=== PATIENT | male | born 1940 | race African-American/Black ===

== ENCOUNTER 2025-06-23 12:02 | Outpatient (REF) | payer MEDICARE, SELFPAY ==
[2025-06-23 14:49] LABS: Folate 9.0 ng/mL (> or = 4.0); Vitamin B12 675 pg/mL (200-900)
[2025-06-24 03:36] LABS: Syphilis Screen Nonreactive (Nonreactive)
== END 2025-06-23 12:03 | disposition home or self-care (01) ==
LOC: HO.LAB 12:02
PROVIDERS: PCP Internal Medicine; Visit Provider Psychiatry & Neurology Neurology
DX: G30.1 Alzheimer's disease with late onset (principal); F02.B4 Dementia in other diseases classified elsewhere, moderate, with anxiety; Z79.899 Other long term (current) drug therapy
CPT/HCPCS: 36415; 82607; 82746; 86780

== ENCOUNTER 2025-06-23 12:02 | Outpatient (AMB) | payer OTHER, SELFPAY ==
--- NOTE | 2025-06-23 12:06 | A.OFFVIS_ITS ---
Intake Visit Reasons: Double Vision Allergies No Known Allergies Allergy (Verified 06/17/25 09:42) Medication List - Last Reconciled 06/23/25 by Ashish Rock MD aspirin 81 mg PO DAILY diclofenac sodium 1% 2 grams topical QID valsartan 40 mg PO DAILY HPI Comments Details: The patient is an 85-year-old male presenting with concerns regarding cognitive impairment and a history of falls. A significant incident occurred in November when the patient fell in the basement while washing clothes, leading to persistent discomfort due to injuries. However, the falls and potential injuries were overshadowed by family bereavements, delaying their report. Cognitive issues were noticed post-fall as the patient began repeating stories and experiencing forgetfulness, raising concerns about cognitive decline. In January or February, he sought emergency care related to mobility complications aggravated by diabetes-related toe amputation and cognitive symptoms. The patient maintains a stable mood amid recent personal losses and displays a regular sleep pattern. His living condition involves navigating stairs to reach the laundry, posing additional fall risks. [facility] Medical History (Updated 06/23/25 @ 12:38 by Ashish Rock MD) Pain in joint, lower leg Erectile dysfunction Microalbuminuria Benign neoplasm of colon Cervicalgia Spinal stenosis of lumbar region CKD (chronic kidney disease) Nuclear sclerosis Amputation of great toe Hypertension Diabetes mellitus Surgical History (Updated 06/17/25 @ 09:39 by Libia Duong [facility]) Status post amputation of great toe Family History (Updated 06/17/25 @ 09:40 by Libia Duong CMA) Mother Breast cancer Diabetes mellitus Hypertension Father Lung cancer Review of Systems Const Details: - Neurologic: Reports episodes of forgetfulness and repetitive storytelling. - Psychiatric: Reports stable mood despite recent family bereavements. - Musculoskeletal: Reports discomfort post-fall, uses a cane for mobility. - Genitourinary: Denies any urinary incontinence issues. - Endocrine: Reports being diabetic, with implications on mobility post- amputation. Physical Exam Neuro Other: Mental Status: - Neurologic- Mini-Mental State Examination score of 21. - Appearance: Neatly dressed, relates well, maintains good focus. - Sensorium & orientation: Correctly identifies date, place, and personal details. - Intellect / cognition: Difficulty with serial sevens, spelling of simple words backwards, partial recall of prompted words. Cranial Nerves: CN II: Visual fried full to confrontation, visual acuity intact. CN III, IV, : Pupils equal, round, reactive to light and accommodation. Extraocular movements are normal. CN V: Facial sensation is normal. CN VII: Facial movements symmetrical. CN VIII: Hearing intact to bedside conversation is normal. CN IX, X: Palate elevates symmetrically. CN XI: Shoulder shrug and head turn symmetrical. CN XII: Tongue midline without atrophy or fasciculations. Extrapyramidal: Full facial expressions and blinking. No rigidity. Movements are appropriate with no tremor or abnormality. Speech: Normal; no dysarthria or tremor. Assessment & Plan Assessment & Plan (1) Alzheimer dementia: Code(s): G30.9 - Alzheimer's disease, unspecified; F02.80 - Dementia in other diseases classified elsewhere, unspecified severity, without behavioral disturbance, psychotic disturbance, mood disturbance, and anxiety Category: Medical Qualifiers: Alzheimer's disease onset: late onset Dementia severity: moderate Dementia behavioral or psychological symptom: with anxiety Qualified Code(s): G30.1 - Alzheimer's disease with late onset; F02.B4 - Dementia in other diseases classified elsewhere, moderate, with anxiety Plan Impression: Moderately severe probably Alzheimer or multifactorial (Alzheimer +vascular) dementia. It has affected his cognition balance and walking. Recommendations: 1. His daughter was asked to bring CTA of his brain scan done at [facility] at next visit 2. Avoid using stairs and take common sense precautions to avoid falls. He was already using a cane for safety. 3. No driving or making significant financial decisions as he could easily make a mistake. 4. Start sertraline 25 mg a day mostly for anxiety or behavioral symptoms. I would probably add more after reviewing his brain scan 5. Serum B12 level and RPR Orders: Orders Vitamin B12 and Folate Today F02.B4 - Dementia in other diseases classified elsewhere, moderate, with anxiety, G30.1 - Alzheimer's disease with late onset Syphilis Screen Today F02.B4 - Dementia in other diseases classified elsewhere, moderate, with anxiety, G30.1 - Alzheimer's disease with late onset Medications: New sertraline 25 mg PO DAILY 90 tabs 1RF Coding Level of Care Code Tele New Pt Level 5 (47647) Diagnoses Moderate late onset Alzheimer's dementia with anxiety G30.1; F02.B4 Alzheimer's disease onset: late onset Dementia severity: moderate Dementia behavioral or psychological symptom: with anxiety
--- OUTSIDE RECORDS SUMMARY | 2025-06-23 12:58 | XMS_ITS | Clinical Summary ---
Author Organization [facility] [address] [place] [address] [place] [phone] Phone Care Team Providers Care Six Pack Loader Operator Name Role Phone Andrea Haro MD Primary Care Provider [phone] Allergies No known active allergies Medications insulin syringe-needle U-100 1 mL 30 gauge x 1/2 syringe Use to inject insulin twice daily 3 Active flash glucose scanning reader (FreeStyle Kia 2 Peterman) misc 1 Device by Does not apply route continuous. 2 Active flash glucose sensor (FREESTYLE KIA 2 SENSOR MISC) USE 1 SENSOR EVERY 14 DAYS 3 Active lactulose (CHRONULAC) solution Take 30 mL by mouth daily as needed for Constipation. 3 Active brimonidine (ALPHAGAN) 0.2 % ophthalmic solution INSTILL 1 DROP INTO EACH EYE TWICE DAILY DIRECTED 2 Active blood sugar diagnostic (FREESTYLE TEST MISC) Test blood sugar 3 times per day 0 Active blood sugar diagnostic (FreeStyle Lite Strips) test strip USE 1 STRIP TO CHECK BLOOD SUGARS TWICE DAILY. 0 Active dorzolamide-arcadio oloL (COSOPT) 22.3-6.8 mg/mL ophthalmic solution Place 1 Drop into both eyes every morning. 5 Active FREESTYLE LANCETS MISC 1 Device by Does not apply route 2 times daily. 5 Active aspirin 81 mg EC tablet 1 TABLET DAILY 8 Active diclofenac (VOLTAREN) 1 % topical gel Apply 2 g topically 4 (four) times a day. 60 g 1 4 Active valsartan (DIOVAN) 40 mg tablet TAKE 1 TABLET BY MOUTH EVERY DAY 90 tablet 1 5 Active insulin NPH human isophane (NovoLIN N NPH U-100 Insulin) 100 unit/mL injection INJECT 8 UNITS IN THE MORNING AND 6 UNITS AT BEDTIME. 5 Active Active Problems Problem Noted Date Diagnosed Date Amputation of great toe, lef t, traumatic, subsequent encounter ([facility] V24) 05/02/2019 Overview (09/05/2024): 04/20/2019, osteomyelitis Streptococcal bacteremia 05/02/2019 Overview (09/05/2024): Strep viridans bacteremia related to osteomyelitis left great toe, 04/20/2019 Slow transit constipation 06/15/2017 Nuclear sclerosis 12/14/2016 Overview (09/05/2024): Bilateral POAG (primary open-angle glaucoma) 12/14/2016 Overview (09/05/2024): Dr. 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 ([facility] V24, [facility] V28) 12/14/2016 CKD (chronic kidney disease) stage 3, GFR 30-59 ml/min ([facility] V24, [facility] V28) 12/26/2012 Microalbuminuria 12/26/2012 Spinal stenosis of lumbar region 02/29/2012 Overview (09/05/2024): Severe DDD Cervicalgia 05/03/2011 Degenerative arthritis of cervical spine 011 Erectile dysfunction 06/02/2009 Allergic rhinitis 04/16/2008 Benign neoplasm of colon 02/11/2007 Overview (09/05/2024): Tubular adenoma 05/07 and 01/02 Hypertension 10/23/2005 Pain in joint, lower leg 10/23/2005 Type 2 diabetes mellitus ([facility] V24, [facility] V 28) 10/23/2005 Encounters Date Type Department Care Team Description 05/14/2025 1:30 PM EDT Consult Orthopedic Surgery - [place] [address] [place] [address] Abiola Borrego PA Chronic left shoulder pain (Primary Dx); Chronic right shoulder pain; Rotator cuff arthropathy, right 04/03/2025 10:23 AM EDT - 04/03/2025 11:59 PM EDT Hospital Encounter Radiology Department - [address] [phone] Double vision Discharge Disposition: Home or Self Care 03/27/2025 10:40 AM EDT Office Visit Endocrinology - [address] [phone] Monika Knowles PA Type 2 diabetes mellitus with other ophthalmic complication, with long-term current use of insulin ([facility] V[facility], [facility] V28) (Primary Dx); Stage 3a chronic kidney disease ([facility] V24, [facility] V28); Primary hypertension; Microalbuminuria 03/26/2025 Telephone Adult Medicine South - [address] [phone] Andrea Haro MD Results from Last 3 Months Immunizations Name Administration Dates Next Due Influenza trivalent, 0.5mL ( Fluzone High-dose) 65yo and older 10/11/2024,10/12/2023,10/04/2022,10/12,07/30/2020,06/26/2020,08/26/2017 Influenza trivalent, with pr eservative (Fluzone; Afluria) 6mo and older 09/21/2016,09/09/2015,08/21/2012,08/14,09/16/2010,08/25/2009,09/07/2008 ,09/19/2007,11/03/2006,10/03/2005 Influenza, Unspecified 08/13/2014 Pneumococcal conjugate 13 va lent (Prevnar 13, PCV13) 2mo and older 12/08/2016 Pneumococcal polysaccharide 23 valent (Pneumovax 23) 2yo and older 12/19/2010,03/13/2001 Td Tetanus diptheria (Tdvax) 7yo and older 08/03/2020,08/04/2011,12/24/2006 Surgical History Surgery Date Site/Laterality Comments MULTIPLE TOOTH EXTRACTIONS PROCEDURE: HISTORICAL DENTAL EXTRACTION COLONOSCOPY W/ BIOPSIES 02/11/2007 PROCEDURE: IN COLONOSCOPY W/BIOPSY SINGLE/MULTIPLE; COMMENT: Diminutive tubular adenoma x 1 COLONOSCOPY 05/14/12 PROCEDURE: IN COLONOSCOPY STOMA DX INCLUDING COLLJ SPEC SPX; COMMENT: diminutive adenoma and tics; would not repeat OTHER SURGICAL HISTORY Left PROCEDURE: ---- OTHER ----; COMMENT: left great toe emputation Medical History Medical History Date Comments Essential hypertension, benign 10/23/2005 D X:Essential hypertension, benign Pain in joint, lower leg 10/23/2005 DX:Pain in joint, lower leg Benign neoplasm of colon 02/11/2007 DX:Raúl gn neoplasm of colon; COMMENT: Diminutive colonic polyp at colonoscopy 02/11/2007 at [facility]. Path: Allergic rhinitis 04/16/2008 DX:Allergic rh initis Erectile dysfunction 06/02/2009 DX:Erectile dysfunction Hypertension 10/23/2005 DX:Hypertension Cervicalgia 05/03/2011 DX:Cervicalgia CKD (chronic kidney disease) stage 3, GFR 30-59 ml/min ([facility] V[facility], [facility] V28) 12/26/2012 DX:CKD (chronic kidney disea se) stage 3, GFR 30-59 ml/min ([facility]) Microalbuminuria 12/26/2012 DX:Microalbumin uria Spinal stenosis of lumbar region 02/29/2012 DX:Spinal stenosis of lumbar region Type 2 diabetes mellitus wit h cataract ([facility] V24, [facility] V28) 10/23/2005 DX:Type 2 diabetes mellitus with cataract (HCC) Cataract 12/14/2016 DX:Cataract; COM MENT: Bilateral History of prostate cancer 05/13/2014 DX:Hi story of prostate cancer Glaucoma suspect 12/14/2016 DX:Glaucoma stalin pect; COMMENT: Bilateral Diabetic retinopathy ([facility] V24, [facility] V28) 06/18/2006 DX:Diabetic retinopathy ([facility] ); COMMENT: Mild, non-proliferative DM (diabetes mellitus), type 2 with renal complications ([facility] V24, [facility] V28) 02/21/2011 DX:DM (diabetes mellitus), t ype 2 with renal complications (HCC) DM (diabetes mellitus), type 2 with peripheral vascular complications ([facility] V[facility], [facility] V28) 02/21/2011 DX:DM (diabetes mellitus), type 2 with peripheral vascular complications (HCC) Type 2 diabetes mellitus wit h eye manifestations ([facility] V24, [facility] V28) 12/14/2016 DX:Type 2 diabetes mellitus with eye manifestations (HCC) Family History Medical History Relation Name Comments Lung cancer Father Breast cancer Mother Diabetes Mother Hypertension Mother Relation Name Status Comments Father Mother Social History Tobacco Use Types Packs/Day Years Used Date Smoking Tobacco: Former Cigarettes 1 15 0 11/26/1964 - 11/26/1979 Smokeless Tobacco: Never Tobacco Cessation:Counseling Given: Not Answered Alcohol Use Standard Drinks/Week Comments Yes 0 (1 standard drink = 0.6 oz pur e alcohol) Sex and Gender Information Value Date Recorded Sex Assigned at Not on file Legal Sex Male 11:01 PM EST Gender Identity Not on file Sexual Orientation Not on file Obstetrics History Last Filed Vital Signs Vital Sign Reading Time Taken Comments Blood Pressure 110/62 03/27/2025 10:36 AM EDT C Pulse 57 03/27/2025 10:36 AM EDT Temperature 36 C (96.8 F) 03/27/2025 10:36 AM EDT Respiratory Rate 12 11/03/2024 1:53 PM EST Oxygen Saturation 97% 03/27/2025 10:36 AM EDT Inhaled Oxygen Concentration - - Weight 99.8 kg (220 lb) 05/14/2025 1:07 PM EDT Height 195.6 cm (6' 5.01 ) 05/14/2025 1:07 PM ED T Body Mass Index 26.08 05/14/2025 1:07 PM EDT Plan of Treatment Upcoming Encounters Date Type Department Care Team (Late st Contact Info) Description 07/21/2025 11:00 AM EDT Office Visit Adult Medicine [address] [phone] Michele Clifton PA [address] [place] [phone] 10/13/2025 11:00 AM EST Office Visit Endocrinology - [place] [address] [place] [phone] Monika Knowles PA [address] [place] [address] Health Maintenance Due Date Last Done Comments COVID-19 Vaccine (#1) 1945 Zoster Vaccines (1 of 2) 1959 RSV Immunization Adult Patients (1 - 1-dose 75+ series) 2015 Falls Risk Assessment 11/04/2022 Medicare Annual Wellness Visit 11/04/2022 Social Influencers of Health Screening 11/04/2022 Depression Screening 11/26/2024 Diabetes: Annual Foot Exam 05/02/2025 05/02/2024 Influenza Vaccine (#1) 2025 , 10/12/2023, 10/04/2022, Additional history exists Diabetes: Blood Sugar Control Test (HGBA1C) 09/19/2025 03/20/2025, 11/03/2024, 06/13/2024, Additional history exists Diabetes: Annual Urine Albumin-Creatinine Ratio (uACR) 11/03/2025 11/03/2024, 06/13/2024 Diabetes: Annual GFR (Glomerular Filtration Rate) 11/03/2025 11/03/2024, 06/13/2024, 06/13/2024 Hypertension/CHF/CAD Annual BMP Blood Test 11/03/2025 11/03/2024, 06/13/2024, 06/13/2024 Diabetes: Annual Retina Eye Exam 02/02/2026 02/02/2025 Cholesterol Screening (Lipid Panel) 11/03/2029 11/03/2024, 06/13/2024, 06/13/2024 DTaP,Tdap,and Td Vaccines (4 - Td or Tdap) 08/03/2030 08/03/2020, 08/04/2011, 12/24/2006 Pneumococcal Vaccine: 50+ Years Completed 12/08/2016, 12/19/2010, 03/13/2001 HIB Vaccines Aged Out No longer eligi ble based on patient's age to complete this topic HPV Vaccines Aged Out No longer eligi ble based on patient's age to complete this topic Hepatitis A Vaccines Aged Out No long er eligible based on patient's age to complete this topic Hepatitis B Vaccines Aged Out No long er eligible based on patient's age to complete this topic IPV Vaccines Aged Out No longer eligi ble based on patient's age to complete this topic MMR Vaccines Aged Out No longer eligi ble based on patient's age to complete this topic Meningococcal ACWY Vaccine Aged Out N o longer eligible based on patient's age to complete this topic Meningococcal B Vaccine Aged Out No l onger eligible based on patient's age to complete this topic RSV Immunization Patients Under 20 months Aged Out No longer eligible based on patient's age to complete this topic Varicella Vaccines Aged Out No longer eligible based on patient's age to complete this topic Procedures Procedure Name Priority Date/Time Associated Diagnosis Comments MR BRAIN WO CONTRAST Routine 04/03/2025 11:35 AM EDT Double vision HEMOGLOBIN A1C Routine 03/20/2025 1:34 PM EDT Type 2 diabetes mellitus with other ophthalmic complication, with long-term current use of insulin ([facility], [facility] V[facility]) EXTERNAL DIABETIC RETINA EYE EXAM 02/02/2025 MICROALBUMIN CREATININE URINE RATIO Routine 11/03/2024 2:27 PM EST Type II or unspecified type diabetes mellitus with renal manifestations, uncontrolled(250.42 ) (CMS/HCC V24, [facility] V28) COMPREHENSIVE METABOLIC PANEL Routine 11/03/2024 2:27 PM EST Primary hypertension Stage 3 chronic kidney disease, unspecified whether stage 3a or 3b CKD (CMS/HCC V24, [facility] V28) LIPID PANEL WITH REFLEX TO DIRECT LDL Routine 11/03/2024 2:27 PM EST Type II or unspecified type diabetes mellitus with renal manifestations, uncontrolled(250.42 ) (CMS/HCC V24, CMS/HCC V28) HM DIABETES FOOT EXAM Routine 05/02/2024 from Last 3 Months or Most Recently Relevant to Health Maintenance Results * MR Brain wo Contrast (04/03/2025 11:35 AM EDT) Anatomical Region Laterality Modality Head and Neck Magnetic Resonan ce 04/03/2025 5:35 PM EDT Impressions 04/04/2025 10:23 AM EDT Nonspecific white matter signal abnormalities, mild in degree, which are likely secondary to chronic small vessel ischemic disease. No evidence of a recent infarction, intracranial hemorrhage, mass, or mass effect. POS - [id number] -------- FINAL REPORT -------- Dictated By: Clara Mcgill Dictated Date: 04/03/2025 17:35 ET Assigned Physician: Clara Mcgill Reviewed and Electronically Signed By: Clara Mcgill Signed Date: 04/04/2025 10:23 ET Workstation ID: [id number] Transcribed By: Self Edit Transcribed Date: 04/03/2025 17:50 ET Narrative 04/04/2025 10:23 AM EDT EXAM: Brain MRI HISTORY: Double vision on the right. COMPARISON: None CORRELATION: Head CT 02/17/2021 TECHNIQUE: Exam performed on a 1.5 Susana high-field MRI scanner. Multiplanar imaging performed without contrast. FINDINGS: No restricted diffusion to indicate a recent infarct. No evidence of intracranial hemorrhage. Mild periventricular T2/FLAIR hyperintense signal abnormalities, most prominent in the right parietal lobe region. Also, multiple scattered T2/FLAIR hyperintense foci in the white matter. No evidence of a mass, mass effect, or midline shift. Mild atrophy. No hydrocephalus. Basal cisterns are patent. No cerebellar ectopia. Pituitary gland is not enlarged. Normal vascular flow-voids appear present in the major intracranial arteries at the skull base. No significant paranasal sinus disease or significant fluid signal within mastoid air cells. Procedure Note Clara Mcgill MD - 04/04/2025 EXAM: Brain MRI HISTORY: Double vision on the right. COMPARISON: None CORRELATION: Head CT 02/17/2021 TECHNIQUE: Exam performed on a 1.5 Susana high-field MRI scanner.Multiplanar imaging performed without contrast. FINDINGS: No restricted diffusion to indicate a recent infarct. No evidence ofintracranial hemorrhage. Mild periventricular T2/FLAIR hyperintensesignal abnormalities, most prominent in the right parietal lobe region.Also, multiple scattered T2/FLAIR hyperintense foci in the white matter. No evidence of a mass, mass effect, or midline shift. Mild atrophy. Nohydrocephalus. Basal cisterns are patent. No cerebellar ectopia.Pituitary gland is not enlarged. Normal vascular flow-voids appearpresent in the major intracranial arteries at the skull base. No significant paranasal sinus disease or significant fluid signal withinmastoid air cells. IMPRESSION: Nonspecific white matter signal abnormalities, mild in degree, which arelikely secondary to chronic small vessel ischemic disease. No evidence ofa recent infarction, intracranial hemorrhage, mass, or mass effect. POS - [id number] -------- FINAL REPORT -------- Dictated By: Clara Mcgill Dictated Date: 04/03/2025 17:35 ET Assigned Physician: Clara Mcgill Reviewed and Electronically Signed By: Clara Mcgill Signed Date: 04/04/2025 10:23 ET Workstation ID: [id number] Transcribed By: Self Edit Transcribed Date: 04/03/2025 17:50 ET Michele MOREJON IMG MRI PROCEDURES Yolis l Result * (ABNORMAL) Hemoglobin A1c (03/20/2025 1:34 PM EDT) Hemoglobin A1C 7.0(H) <6.5 % LAB CHEMISTRY METHOD 03/20/2025 9:54 PM EDT [facility] Mean Bld Glu Estim. 154 mg/dL LAB CHEMISTRY METHOD 03/20/2025 9:54 PM EDT [facility] Blood Venous blood specimen / Unknown Venipuncture / Unknown 03/20/2025 1:34 PM EDT 03/20/2025 1:34 PM EDT us Monika MOREJON LAB BLOOD ORDERABLES Final Resul t [facility] [address] [place] [address], [place] [phone] * External Diabetic Retina Eye Exam Report (02/02/2025) Anatomical Region Laterality Modality Ultrasound us Provider [facility] US PROCEDURES Final Result * Lipid panel with reflex to direct LDL (11/03/2024 2:27 PM EST) Cholesterol 159 0 - 200 mg/dL LAB CHEMISTRY METHOD 11/03/2024 6:48 PM EST [facility] Triglycerides 80 0 - 150 mg/dL LAB CHEMISTRY METHOD 11/03/2024 6:48 PM EST [facility] HDL 83 >=40 mg/dL LAB CHEMISTRY METHOD 11/03/2024 6:48 PM EST [facility] LDL Calculated 60 0 - 100 mg/dL LAB CHEMISTRY METHOD 11/03/2024 6:48 PM [facility] VLDL Cholesterol Maikel 16 mg/dL LAB CHEMISTRY METHOD 11/03/2024 6:48 PM EST [facility] Non HDL Chol. (LDL+VLDL) 76 <145 mg/dL LAB CHEMISTRY METHOD 11/03/2024 6:48 PM EST [facility] Chol/HDL Ratio 1.9 0.0 - 4.4 LAB CHEMISTRY METHOD 11/03/2024 6:48 PM EST [facility] Blood Venous blood specimen / Unknown Venipuncture / Unknown 11/03/2024 2:27 PM EST 11/03/2024 2:27 PM EST us Andrea Haro MD LAB BLOOD ORDERABLES Final Resu lt [facility] [address] [place] [address], * (ABNORMAL) Microalbumin creatinine urine ratio (11/03/2024 2:27 PM EST) Creatinine, Urine 78.0 mg/dL LAB CHEMISTRY METHOD 11/03/2024 6:12 PM EST [facility] Microalb, Ur 25.5 0.0 - 29.0 mg/L LAB CHEMISTRY METHOD 11/03/2024 6:12 PM [facility] Microalb/Creat Ratio 33(H) <30 mg/g creat LAB CHEMISTRY METHOD 11/03/2024 6:12 PM [facility] Urine Urine specimen obtained by clean catch procedure / Unknown Non-blood Collection / Unknown 11/03/2024 2:27 PM EST 11/03/2024 2:27 PM EST us Andrea Haro MD LAB URINE ORDERABLES Final Resu lt [facility] [address] [place] [address], [place] [phone] * (ABNORMAL) Comprehensive metabolic panel (11/03/2024 2:27 PM EST) Sodium 142 133 - 145 mmol/L LAB CHEMISTRY METHOD 11/03/2024 6:48 PM [facility] Potassium 4.3 3.5 - 5.5 mmol/L LAB CHEMISTRY METHOD 11/03/2024 6:48 PM [facility] Chloride 109 96 - 110 mmol/L LAB CHEMISTRY METHOD 11/03/2024 6:48 PM [facility] CO2 27 21 - 32 mmol/L LAB CHEMISTRY METHOD 11/03/2024 6:48 PM [facility] Anion Gap 6 3 - 11 LAB CHEMISTRY METHOD 11/03/2024 6:48 PM [facility] Glucose 230(H) 70 - 100 mg/dL LAB CHEMISTRY METHOD 11/03/2024 6:48 PM [facility] BUN 23 5 - 25 mg/dL LAB CHEMISTRY METHOD 11/03/2024 6:48 PM [facility] Creatinine 1.33(H) 0.70 - 1.30 mg/dL LAB CHEMISTRY METHOD 11/03/2024 6:48 PM [facility] eGFR 53(L) >=60 mL/min/1. 73m2 LAB CHEMISTRY METHOD 11/03/2024 6:48 PM [facility] Comment:Calculation based on the Chronic Kidney Disease Epidemiology Collaboration (CKD-EPI) equation refit without adjustment for race. BUN/Creatinine Ratio 17.3 LAB CHEMISTRY METHOD 11/03/2024 6:48 PM [facility] Calcium 9.5 8.5 - 10.5 mg/dL LAB CHEMISTRY METHOD 11/03/2024 6:48 PM [facility] AST (SGOT) 34 10 - 42 unit/L LAB CHEMISTRY METHOD 11/03/2024 6:48 PM [facility] ALT (SGPT) 45 10 - 60 unit/L LAB CHEMISTRY METHOD 11/03/2024 6:48 PM [facility] Alkaline Phosphatase 83 42 - 121 unit/L LAB CHEMISTRY METHOD 11/03/2024 6:48 PM [facility] Total Protein 7.1 6.0 - 8.0 g/dL LAB CHEMISTRY METHOD 11/03/2024 6:48 PM [facility] Albumin 3.7 3.2 - 5.0 g/dL LAB CHEMISTRY METHOD 11/03/2024 6:48 PM [facility] Total Bilirubin 0.8 0.0 - 1.4 mg/dL LAB CHEMISTRY METHOD 11/03/2024 6:48 PM [facility] Blood Venous blood specimen / Unknown Venipuncture / Unknown 11/03/2024 2:27 PM EST 11/03/2024 2:27 PM EST us Andrea Haro MD LAB BLOOD ORDERABLES Final Resu lt [facility] [address] [place] [address], * Diabetes Foot Exam (05/02/2024) Diabetes: Annual Foot Exam abstracted us Historical Provider HEALTH MAINTENANCE Final Result from Last 3 Months or Most Recently Relevant to Health Maintenance Insurance [employer] [place] [employer] Advance Directives Documents on File Type Date Recorded Patient Trombone Slide Assembler Expl anation Health Care Decision (hx) 02/17/2021 AD WALKER DIRECTIVE * Full Code - Confirmed (Latest Code Status on File) Date Activated Date Inactivated Comments 03/20/2025 12:26 PM This code sta tus was ascertained in the following way: Code status discussion: discussion with patient and MOLST form completed To update the patient's code status, place a code status order. Do not modify or discontinue any currently active code status orders. Care Teams Six Pack Loader Operator Relationship Specialty Start Date End Date Andrea Haro MD [address] [place] [id number] PCP - General Internal Medicine 07/26/20
--- OUTSIDE RECORDS SUMMARY | 2025-06-23 12:58 | XMS_ITS ---
Author Name [facility] Organization Unknown Care Team Organization Name Specialty Phone Email Start Date End Da te [facility] WEN NISSA Primary [facility] 10/03/2022 4
== END 2025-06-23 12:46 | disposition home or self-care (01) ==
LOC: HO.HSM 12:03
PROVIDERS: PCP Psychiatry & Neurology Neurology; Visit Provider Psychiatry & Neurology Neurology
DX: G30.1 Alzheimer's disease with late onset (principal); F02.B4 Dementia in other diseases classified elsewhere, moderate, with anxiety
CPT/HCPCS: 99204

== ENCOUNTER 2025-07-08 14:50 | Outpatient (AMB) | payer OTHER, SELFPAY ==
--- OUTSIDE RECORDS SUMMARY | 2025-07-08 14:59 | XMS_ITS | Clinical Summary ---
Author Organization [facility] [address] [place] [address] [place] [phone] Phone Care Team Providers Care Shark Biologist Name Role Phone Andrea Haro MD Primary Care Provider [phone] Allergies No known active allergies Medications insulin syringe-needle U-100 1 mL 30 gauge x 1/2 syringe Use to inject insulin twice daily 3 Active flash glucose scanning reader (FreeStyle Kia 2 [place]) misc 1 Device by Does not apply [...] AND 6 UNITS AT BEDTIME. 5 Active blood-glucose sensor (FreeStyle Kia 2 Plus Sensor) device 1 EA every 14 (fourteen) days. Box = Kit = EA 2 each 4 5 Active Active Problems Problem Noted Date Diagnosed Date Amputation of great toe, lef t, traumatic, subsequent encounter ([facility] V24) 05/02/2019 Overview (09/05/2024): 04/20/2019, osteomyelitis Streptococcal bacteremia 05/02/2019 Overview (09/05/2024): Strep viridans bacteremia related to osteomyelitis left great toe, 04/20/2019 Slow transit constipation 06/15/2017 Nuclear sclerosis 12/14/2016 Overview (09/05/2024): Bilateral POAG (primary open-angle glaucoma) 12/14/2016 Overview (09/05/2024): Dr. 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 ([facility] V24, [facility] V28) 12/14/2016 CKD (chronic kidney disease) stage 3, GFR 30-59 ml/min ([facility] V24, [facility] V28) 12/26/2012 Microalbuminuria 12/26/2012 Spinal stenosis of lumbar region 02/29/2012 Overview (09/05/2024): Severe DDD Cervicalgia 05/03/2011 Degenerative arthritis of cervical spine 011 Erectile dysfunction 06/02/2009 Allergic rhinitis 04/16/2008 Benign neoplasm of colon 02/11/2007 Overview (09/05/2024): Tubular adenoma 05/07 and 01/02 Hypertension 10/23/2005 Pain in joint, lower leg 10/23/2005 Type 2 diabetes mellitus ([facility] V24, [facility] V 28) 10/23/2005 Encounters Date Type Department Care Team Description 05/14/2025 1:30 PM EDT Consult Orthopedic Surgery - [address] [place] [address] Abiola Borrego, [place] Chronic left shoulder pain (Primary Dx); Chronic right shoulder pain; Rotator cuff arthropathy, right from Last 3 Months Immunizations Name Administration [...] DENTAL EXTRACTION COLONOSCOPY W/ BIOPSIES 02/11/2007 PROCEDURE: WA COLONOSCOPY W/BIOPSY SINGLE/MULTIPLE; COMMENT: Diminutive tubular adenoma x 1 COLONOSCOPY 05/14/12 PROCEDURE: WA COLONOSCOPY STOMA DX INCLUDING COLLJ SPEC SPX; [...] Diminutive colonic [place] [facility] [place]: Allergic rhinitis 04/16/2008 DX:Allergic rh initis Erectile dysfunction 06/02/2009 DX:Erectile dysfunction Hypertension 10/23/2005 DX:Hypertension Cervicalgia 05/03/2011 DX:Cervicalgia CKD (chronic kidney disease) stage 3, GFR 30-59 ml/min ([facility] V24, [facility] V28) 12/26/2012 DX:CKD (chronic kidney disea se) stage 3, GFR 30-59 ml/min ([facility]) Microalbuminuria 12/26/2012 DX:Microalbumin uria Spinal stenosis of lumbar region 02/29/2012 DX:Spinal stenosis of lumbar region Type 2 diabetes mellitus wit h cataract ([facility] V24, [facility] V28) 10/23/2005 DX:Type 2 diabetes mellitus with cataract (HCC) Cataract 12/14/2016 DX:Cataract; COM MENT: Bilateral History of prostate cancer 05/13/2014 DX:Hi story of prostate cancer Glaucoma suspect 12/14/2016 DX:Glaucoma stalin pect; COMMENT: Bilateral Diabetic retinopathy ([facility] V24, [facility] V28) 06/18/2006 DX:Diabetic retinopathy ([facility] ); COMMENT: Mild, non-proliferative DM (diabetes mellitus), type 2 with renal complications ([facility] V24, [facility] V28) 02/21/2011 DX:DM (diabetes mellitus), t ype 2 with renal complications (HCC) DM (diabetes mellitus), type 2 with peripheral vascular complications ([facility] V24, [facility] V28) 02/21/2011 DX:DM (diabetes mellitus), type 2 with peripheral vascular complications (HCC) Type 2 diabetes mellitus wit h eye manifestations ([facility] V24, [facility] V28) 12/14/2016 DX:Type 2 diabetes mellitus with [...] 11:00 AM EDT Office Visit Adult Medicine [address] [phone] Michele Clifton PA [address] [place] [phone] 10/13/2025 11:00 AM EST Office Visit Endocrinology [address] [phone] Monika Knowles PA [address] [place] [phone] Health Maintenance Due Date Last Done Comments [...] Procedure Name Priority Date/Time Associated Diagnosis Comments HEMOGLOBIN A1C Routine 03/20/2025 1:34 PM EDT Type 2 diabetes mellitus with other ophthalmic complication, with long-term current use of insulin ([facility] V24, [facility] V28) EXTERNAL DIABETIC RETINA EYE EXAM 02/02/2025 MICROALBUMIN CREATININE URINE RATIO Routine 11/03/2024 2:27 PM EST Type II or unspecified type diabetes mellitus with renal manifestations, uncontrolled(250.42 ) ([facility] V24, [facility] V28) COMPREHENSIVE METABOLIC PANEL Routine 11/03/2024 2:27 PM EST Primary hypertension Stage 3 chronic kidney disease, unspecified whether stage 3a or 3b CKD ([facility] V24, [facility] V28) LIPID PANEL WITH REFLEX TO DIRECT LDL Routine 11/03/2024 2:27 PM EST Type II or unspecified type diabetes mellitus with renal manifestations, uncontrolled(250.42 ) ([facility] V24, [facility] V28) DIABETES FOOT EXAM Routine 05/02/2024 from Last 3 Months or Most Recently Relevant to Health Maintenance Results * (ABNORMAL) Hemoglobin A1c (03/20/2025 1:34 PM EDT) Hemoglobin A1C 7.0(H) <6.5 % LAB CHEMISTRY METHOD 03/20/2025 9:54 PM EDT [facility] Mean Bld Glu Estim. 154 mg/dL LAB CHEMISTRY METHOD 03/20/2025 9:54 PM EDT [facility] Blood Venous blood specimen / Unknown Venipuncture / Unknown 03/20/2025 1:34 PM EDT 03/20/2025 1:34 PM EDT us Monika MOREJON LAB BLOOD ORDERABLES Final Resul t [facility] [address] [place] [address], [place] [phone] * External Diabetic Retina Eye Exam Report (02/02/2025) Anatomical Region Laterality Modality Ultrasound Provider [facility] US PROCEDURES Final Result * Lipid panel with reflex to direct LDL (11/03/2024 2:27 PM EST) Cholesterol 159 0 - 200 mg/dL LAB CHEMISTRY METHOD 11/03/2024 6:48 PM EST [facility] Triglycerides 80 0 - 150 mg/dL LAB CHEMISTRY METHOD 11/03/2024 6:48 PM EST [facility] HDL 83 >=40 mg/dL LAB CHEMISTRY METHOD 11/03/2024 6:48 PM [facility] LDL Calculated 60 0 - 100 mg/dL LAB CHEMISTRY METHOD 11/03/2024 6:48 PM [facility] VLDL Cholesterol Maikel 16 mg/dL LAB CHEMISTRY METHOD 11/03/2024 6:48 PM [facility] Non HDL Chol. (LDL+VLDL) 76 <145 mg/dL LAB CHEMISTRY METHOD 11/03/2024 6:48 PM EST [facility] Chol/HDL Ratio 1.9 0.0 - 4.4 LAB CHEMISTRY METHOD 11/03/2024 6:48 PM EST [facility] Blood Venous blood specimen / Unknown Venipuncture / Unknown 11/03/2024 2:27 PM EST 11/03/2024 2:27 PM EST Andrea Haro MD LAB BLOOD ORDERABLES Final Resu lt [facility] [address] [place] [address], * (ABNORMAL) Microalbumin creatinine urine ratio (11/03/2024 2:27 PM EST) Creatinine, Urine 78.0 mg/dL LAB CHEMISTRY METHOD 11/03/2024 6:12 PM EST [facility] Microalb, Ur 25.5 0.0 - 29.0 mg/L LAB CHEMISTRY METHOD 11/03/2024 6:12 PM EST [facility] Microalb/Creat Ratio 33(H) <30 mg/g creat LAB CHEMISTRY METHOD 11/03/2024 6:12 PM [facility] Urine Urine specimen obtained by clean catch procedure / Unknown Non-blood Collection / Unknown 11/03/2024 2:27 PM EST 11/03/2024 2:27 PM EST us Andrea Haro MD LAB URINE ORDERABLES Final Resu lt [facility] [address] [place] [address], [place] [phone] * (ABNORMAL) Comprehensive metabolic panel (11/03/2024 2:27 PM EST) Sodium 142 133 - 145 mmol/L LAB CHEMISTRY METHOD 11/03/2024 6:48 PM [facility] Potassium 4.3 3.5 - 5.5 mmol/L LAB CHEMISTRY METHOD 11/03/2024 6:48 PM [facility] Chloride 109 96 - 110 mmol/L LAB CHEMISTRY METHOD 11/03/2024 6:48 PM [facility] CO2 27 21 - 32 mmol/L LAB CHEMISTRY METHOD 11/03/2024 6:48 PM [facility] Anion Gap 6 3 - 11 LAB CHEMISTRY METHOD 11/03/2024 6:48 PM [facility] Glucose 230(H) 70 - 100 mg/dL LAB CHEMISTRY METHOD 11/03/2024 6:48 PM [facility] BUN 23 5 - 25 mg/dL LAB CHEMISTRY METHOD 11/03/2024 6:48 PM [facility] Creatinine 1.33(H) 0.70 - 1.30 mg/dL LAB CHEMISTRY METHOD 11/03/2024 6:48 PM [facility] eGFR 53(L) >=60 mL/min/1. 73m2 LAB CHEMISTRY METHOD 11/03/2024 6:48 PM [facility] Comment:Calculation based on the Chronic Kidney Disease Epidemiology Collaboration (CKD-EPI) equation refit without adjustment for race. BUN/Creatinine Ratio 17.3 LAB CHEMISTRY METHOD 11/03/2024 6:48 PM [facility] Calcium 9.5 8.5 - 10.5 mg/dL LAB CHEMISTRY METHOD 11/03/2024 6:48 PM [facility] AST (SGOT) 34 10 - 42 unit/L LAB CHEMISTRY METHOD 11/03/2024 6:48 PM [facility] ALT (SGPT) 45 10 - 60 unit/L LAB CHEMISTRY METHOD 11/03/2024 6:48 PM [facility] Alkaline Phosphatase 83 42 - 121 unit/L LAB CHEMISTRY METHOD 11/03/2024 6:48 PM [facility] Total Protein 7.1 6.0 - 8.0 g/dL LAB CHEMISTRY METHOD 11/03/2024 6:48 PM [facility] Albumin 3.7 3.2 - 5.0 g/dL LAB CHEMISTRY METHOD 11/03/2024 6:48 PM [facility] Total Bilirubin 0.8 0.0 - 1.4 mg/dL LAB CHEMISTRY METHOD 11/03/2024 6:48 PM [facility] Blood Venous blood specimen / Unknown Venipuncture / Unknown 11/03/2024 2:27 PM EST 11/03/2024 2:27 PM EST us Andrea Haro MD LAB BLOOD ORDERABLES Final Resu lt [facility] [address] [place] [address], * Diabetes Foot Exam (05/02/2024) Diabetes: Annual Foot Exam abstracted us Historical Provider MD HEALTH MAINTENANCE Final Result from Last 3 Months or Most Recently Relevant to Health Maintenance Insurance [employer] Advance Directives Documents on File Type Date Recorded Patient Sap Ppm Consultant Expl anation Health Care Decision (hx) 02/17/2021 [...] currently active code status orders. Care Teams Shark Biologist Relationship Specialty Start Date End Date Andrea Haro MD [address] [place] [phone] PCP - General Internal Medicine 07/26/20
--- NOTE | 2025-07-08 15:04 | A.OFFVIS_ITS ---
Intake Visit Reasons: Dementia Allergies No Known Allergies Allergy (Verified 06/17/25 09:42) HPI Comments Details: The patient is an 85-year-old male presenting with concerns about early-stage Alzheimer's disease. He noted increasing forgetfulness, raising concerns about his cognitive status. The patient's MRI was considered normal for his age, and blood tests ruled out B12 deficiency as a cause of cognitive concerns. Further specific testing for Alzheimer's has been planned, which follows a stepwise approach, considering both its specificity and costs. The patient is not currently on medication for Alzheimer's, pending more specific diagnostic test ing. [facility] Medical History (Updated 07/08/25 @ 15:07 by Ashish Rock MD) Pain in joint, lower leg Erectile dysfunction Microalbuminuria Benign neoplasm of colon Cervicalgia Spinal stenosis of lumbar region CKD (chronic kidney disease) Nuclear sclerosis Amputation of great toe Hypertension Diabetes mellitus Surgical History (Updated 06/17/25 @ 09:39 by Libia Duong [facility]) Status post amputation of great toe Family History (Updated 06/17/25 @ 09:40 by Libia Duong [facility]) Mother Breast cancer Diabetes mellitus Hypertension Father Lung cancer Review of Systems Const Details: - Neurological: Reports forgetfulness; Denies taking new medication for cognitive issues. Physical Exam Neuro Other: Mental Status: Alert and oriented to person, place, and time. Normal attention. Normal spontaneous speech, fluency, and comprehension. Cranial Nerves: CN II: Visual fried full to confrontation, visual acuity intact. CN III, IV, : Pupils equal, round, reactive to light and accommodation. Extraocular movements are normal. CN V: Facial sensation is normal. CN VII: Facial movements symmetrical. CN VIII: Hearing intact to bedside conversation is normal. CN IX, X: Palate elevates symmetrically. CN XI: Shoulder shrug and head turn symmetrical. CN XII: Tongue midline without atrophy or fasciculations. Extrapyramidal: Full facial expressions and blinking. No rigidity. Movements are appropriate with no tremor or abnormality. Speech: Normal; no dysarthria or tremor. Results Reviewed Results Reviewed: Serum B12/folate and RPR WNL Assessment & Plan Assessment & Plan (1) Alzheimer dementia: Comment: MRI brain WO at [facility] March2025: Mild MVD, minimal atrophy Code(s): G30.9 - Alzheimer's disease, unspecified; F02.80 - Dementia in other diseases classified elsewhere, unspecified severity, without behavioral disturbance, psychotic disturbance, mood disturbance, and anxiety Category: Medical Qualifiers: Alzheimer's disease onset: late onset Dementia severity: moderate Dementia behavioral or psychological symptom: with anxiety Qualified Code(s): G30.1 - Alzheimer's disease with late onset; F02.B4 - Dementia in other diseases classified elsewhere, moderate, with anxiety Plan Impression recommendations: 85 years old man probably with a early stage Alzheimer. He was prescribed small dose of sertraline that he did not take. He wanted to exactly know what was wrong with him 1st. His MRI of brain did not reveal any significant pathology for his age. Serum B12, folate, and syphilis testing were negative. I have requested more specific serum testing for cerebral amyloid and serum TSH level. 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
== END 2025-07-08 15:16 | disposition home or self-care (01) ==
LOC: HO.HSM 14:51
PROVIDERS: PCP Psychiatry & Neurology Neurology; Visit Provider Psychiatry & Neurology Neurology
DX: G30.1 Alzheimer's disease with late onset (principal); F02.B4 Dementia in other diseases classified elsewhere, moderate, with anxiety
CPT/HCPCS: 99214

== ENCOUNTER 2025-07-08 14:50 | Outpatient (REF) | payer OTHER, SELFPAY ==
[2025-07-08 17:45] LABS: Thyroid Stimulating Hormone 1.88 uIU/mL (0.32-4.0)
== END 2025-07-08 14:51 | disposition home or self-care (01) ==
LOC: HO.LAB 14:50
PROVIDERS: PCP Psychiatry & Neurology Neurology; Visit Provider Psychiatry & Neurology Neurology
DX: G30.1 Alzheimer's disease with late onset (principal); F02.B4 Dementia in other diseases classified elsewhere, moderate, with anxiety
CPT/HCPCS: 36415; 82233; 82234; 84393; 84443